=== PATIENT | male | born 1945 | race Caucasian/White ===

== ENCOUNTER 2019-05-02 13:53 | Emergency (ER) | payer OTHER ==
--- NOTE | 2019-05-02 14:35 | RAD REPORT ---
EXAM DESCRIPTION: RAD -Hand Left 3 View - 05/02/2019 2:18 pm CLINICAL HISTORY: Left hand pain status post injury FINDINGS: Comminuted avulsion fracture involves the third terminal tuft. No dislocation 3 millimeter radiopaque foreign body lies within the soft tissues of the first web space
[2019-05-02] MEDS ORDERED: BUPIVACAINE 0.5% PF 10 ML VIAL ONE (14:38)
[2019-05-02] MEDS ORDERED: LIDOCAINE 1% MPF 5 ML VIAL ONE (14:38)
[2019-05-02] MEDS ORDERED: WATER FOR INJ,STERILE 10 ML ONE (15:53)
[2019-05-02] MEDS ORDERED: CEFAZOLIN SODIUM 1 GM/VIAL ONE (15:53)
[2019-05-02] MEDS ORDERED: TETANUS & DIPHTHERIA TOX,ADULT 0.5 ML VIAL ONE (15:53)
--- NOTE | 2019-05-02 16:54 | ER ---
Nurse's Notes [facility] Name: Nolberto Shields Age: 74 yrs Sex: Male : 1945 Arrival Date: 05/02/2019 Time: 13:54 Bed 16 Private MD: Mando Sesay V Diagnosis: Displaced fracture of distal phalanx of left middle finger-open, with damage to nail Presentation: 05/02 13:56 Presenting complaint: Patient states: i was using a skill saw and i cut the tip of my tw2 middle finger on my LEFT hand. Transition of care: patient was not received from another setting of care. Complicating Factors: There are no complicating factors for this patient. Onset of symptoms was May 02, 2019. Risk Assessment: Do you want to hurt yourself or someone else? Patient reports no desire to harm self or others. Initial Sepsis Screen: Does the patient meet any 2 criteria? No. Patient's initial sepsis screen is negative. Does the patient have a suspected source of infection? No. Patient's initial sepsis screen is negative. Care prior to arrival: None. 13:56 Method Of Arrival: Ambulatory tw2 13:56 Acuity: TANNA 3 tw2 14:00 Mechanism of Injury: Laceration sustained. tw2 14:01 Trauma event details: [place] occurred in the county of. tw2 Triage Assessment: 13:59 General: Appears in no apparent distress. Behavior is calm, cooperative, appropriate tw2 for age. Pain: Complains of pain in palmar aspect of distal phalanx of left middle finger and left middle fingernail. Injury Description: Avulsion sustained to left middle fingernail and palmar aspect of distal phalanx of left middle finger. Trauma Activation: Alert Physician: ED Physician; Name: ; Notified At: ; Arrived At: Physician: General Surgeon; Name: ; Notified At: ; Arrived At: Physician: Radiology; Name: ; Notified At: ; Arrived At: Physician: Respiratory; Name: ; Notified At: ; Arrived At: Physician: Lab; Name: ; Notified At: ; Arrived At: Historical: - Allergies: 13:58 No Known Allergies; tw2 - Home Meds: 13:58 levothyroxine oral [Active]; tw2 14:04 aspirin 81 mg Oral chew 1 tab once daily [Active]; tw2 - PMHx: 13:58 Hypothyroidism; prostate problem; tw2 - PSHx: 13:58 None; tw2 - Immunization history:: Last tetanus immunization: < 10 years ago "maybe more than 8 years ago". - Social history:: Smoking status: . - Immunization history: Last tetanus immunization: < 10 years ago. - Ebola Screening: : Patient denies travel to an Ebola-affected area in the 21 days before illness onset. Screenin:21 Abuse screen: Denies threats or abuse. Denies injuries from another. Nutritional la1 screening: No deficits noted. Tuberculosis screening: No symptoms or risk factors identified. Fall Risk None identified. Assessment: 14:19 General: Appears in no apparent distress. Behavior is calm, cooperative. Pain: la1 Complains of pain in left middle fingernail and palmar aspect of distal phalanx of left middle finger. Neuro: Level of Consciousness is awake, alert, obeys commands, Oriented to person, place, time, situation. Cardiovascular: Capillary refill < 3 seconds Patient's skin is warm and dry. Respiratory: Airway is patent Respiratory effort is even, unlabored, Respiratory pattern is regular, symmetrical, Breath sounds are clear bilaterally. GI: No signs and/or symptoms were reported involving the gastrointestinal system. : No signs and/or symptoms were reported regarding the genitourinary system. Musculoskeletal: Circulation, motion, and sensation intact. cap refill in left third digit not present, appears cyanotic. 15:21 Reassessment: Patient appears in no apparent distress at this time. No changes from la1 previously documented assessment. Patient and/or family updated on plan of care and expected duration. Pain level reassessed. Vital Signs: 13:59 BP 151 / 70; Pulse 64; Resp 17; Temp 97.7(TE); Pulse Ox 98% on R/A; Weight 58.51 kg tw2 (R); Height 5 ft. 0 in. (152.40 cm); Pain 2/10; 16:52 BP 124 / 65; Pulse 74; Resp 16; Pulse Ox 98% on R/A; la1 13:59 Body Mass Index 25.19 (58.51 kg, 152.40 cm) tw2 ED Course: 13:54 Patient arrived in ED. rg4 13:54 Mando Sesay MD is Private Physician. rg4 13:57 Triage completed. tw2 13:58 Arm band placed on. tw2 14:07 Carlo Davis PA is PHCP. cp 14:07 Golden Narayan MD is Attending Physician. cp 14:19 Hand Left 3 View In Process Unspecified. EDMS 14:19 Eleazar Quintana, RN is Primary Nurse. la1 14:21 Call light in reach. la1 16:51 Romero Emanuel MD is Referral Physician. cp 16:53 Assist provider with laceration repair on palmar aspect of distal phalanx of left la1 middle finger. Patient did not have IV access during this emergency room visit. Administered Medications: 16:51 Drug: Tetanus-Diphtheria Toxoid Adult 0.5 ml {[employer] Maker: [employer]. Exp: la1 01/22/2021. Lot #: [id number]. } Route: IM; Site: left deltoid; 17:16 Follow up: Response: No adverse reaction la1 16:52 Drug: Ancef 1 grams Route: IM; Site: right gluteus; la1 17:16 Follow up: Response: No adverse reaction la1 Outcome: 16:53 Discharge ordered by MD. cp 17:16 Discharged to home ambulatory. la1 17:16 Condition: stable 17:16 Discharge instructions given to patient, family, Instructed on discharge instructions, follow up and referral plans. medication usage, Demonstrated understanding of instructions, follow-up care, medications, wound care. 17:17 Patient left the ED. la1 Signatures: Dispatcher [employer] EDDC Eleazar Quintana RN RN la1 Carlo Davis PA PA cp Ariadna Lyon RN RN tw2 Marysol Guajardo rg4 Corrections: (The following items were deleted from the chart) 14:50 13:59 Injury Description: Laceration sustained to left middle fingernail tw2 tw2
--- NOTE | 2019-05-02 16:55 | EDPHYS ---
Physician Documentation [facility] Name: Nolberto Shields Age: 74 yrs Sex: Male : 1945 Arrival Date: 05/02/2019 Time: 13:54 Bed 16 Private MD: Mando Sesay V ED Physician Golden Narayan HPI: 05/02 14:20 This 74 yrs old Male presents to ER via Ambulatory with complaints of cp Laceration To Hand. 14:20 The patient has a laceration occurred at home, and using skill saw. The laceration(s) cp is(are) located on the distal phalanx left middle finger. 14:20 Onset: The symptoms/episode began/occurred just prior to arrival. Associated signs and cp symptoms: Pertinent positives: deformity, injury to nail, suspected fracture, Pertinent negatives: dizziness, heavy bleeding. Historical: - Allergies: 13:58 No Known Allergies; tw2 - Home Meds: 13:58 levothyroxine oral [Active]; tw2 14:04 aspirin 81 mg Oral chew 1 tab once daily [Active]; tw2 - PMHx: 13:58 Hypothyroidism; prostate problem; tw2 - PSHx: 13:58 None; tw2 - Immunization history:: Last tetanus immunization: < 10 years ago "maybe more than 8 years ago". - Social history:: Smoking status: . - Immunization history: Last tetanus immunization: < 10 years ago. - Ebola Screening: : Patient denies travel to an Ebola-affected area in the 21 days before illness onset. ROS: 14:30 Constitutional: Negative for fever, poor PO intake. cp 14:30 Cardiovascular: Negative for chest pain, palpitations. cp 14:30 Respiratory: Negative for cough, shortness of breath, wheezing. 14:30 Abdomen/GI: Negative for abdominal pain, nausea, vomiting, and diarrhea. 14:30 Skin: Positive for laceration(s), of the distal phalanx left middle finger. 14:30 Neuro: Positive for decreased sensation distal phalanx left middle finger. 14:30 All other systems are negative. Exam: 14:45 Constitutional: The patient appears in no acute distress, alert, awake, cp non-diaphoretic, well developed, well nourished. 14:45 Head/Face: Normocephalic, atraumatic. cp 14:45 Musculoskeletal/extremity: Extremities: grossly normal except: noted in the distal phalanx left middle finger: deformity, laceration, Perfusion: the extremity is pink, decreased sensation, Tendon exam: specific tendon testing normal through active and passive range of motion Nails: partial avulsion, of the dorsal aspect of distal phalanx of left middle finger. Vital Signs: 13:59 BP 151 / 70; Pulse 64; Resp 17; Temp 97.7(TE); Pulse Ox 98% on R/A; Weight 58.51 kg tw2 (R); Height 5 ft. 0 in. (152.40 cm); Pain 2/10; 16:52 BP 124 / 65; Pulse 74; Resp 16; Pulse Ox 98% on R/A; la1 13:59 Body Mass Index 25.19 (58.51 kg, 152.40 cm) tw2 Laceration: 17:00 Wound Repair of 3cm ( 1.2in ) through nail and nail bed laceration to distal phalanx cp left middle finger. Irregularly shaped.. Skin/tissue flap noted.. Distal neuro/vascular/tendon intact. Anesthesia: Digital block administered with 6 mls of Lido/Marcaine. Wound prep: Moderate cleansing by me, Wound irrigation by me. nailbed closed with 5 1-0 Vicryl using simple sutures and sterile technique. Skin closed with 9 5-0 Vicryl using interrupted sutures and sterile technique. Dressed with Bacitracin, tube gauze. Patient tolerated well. MDM: 14:07 Patient medically screened. cp 16:52 Data reviewed: vital signs, nurses notes, radiologic studies, plain films, I have cp discussed the patient's presentation/case with the attending Emergency Department Physician; and as a result, I will discharge patient. 05/02 14:15 Order name: Hand Left 3 View; Complete Time: 14:42 EDMS 05/02 14:44 Order name: Wound Care: please soak in normal saline; Complete Time: 14:50 cp 05/02 16:37 Order name: Wound dressing; Complete Time: 16:53 cp 05/02 16:37 Order name: Finger Splint; Complete Time: 16:53 cp Administered Medications: 16:51 Drug: Tetanus-Diphtheria Toxoid Adult 0.5 ml {[employer] Operator: [employer]. Exp: la1 01/22/2021. Lot #: [id number]. } Route: IM; Site: left deltoid; 17:16 Follow up: Response: No adverse reaction la1 16:52 Drug: Ancef 1 grams Route: IM; Site: right gluteus; la1 17:16 Follow up: Response: No adverse reaction la1 Disposition: 17:30 Chart complete. cp 05/03 07:04 Co-signature as Attending Physician, Golden Narayan MD. rn Disposition: 05/02/19 16:53 Discharged to Home. Impression: Displaced fracture of distal phalanx of left middle finger - open, with damage to nail. - Condition is Stable. - Discharge Instructions: Finger Fracture. - Prescriptions for Keflex 500 mg Oral Capsule - take 1 capsule by ORAL route every 6 hours for 10 days; 40 capsule. Tylenol- Codeine #3 300-30 mg Oral Tablet - take 2 tablets by ORAL route every 6 hours As needed; 20 tablet. - Medication Reconciliation Form, Thank You Letter, Antibiotic Education, Prescription Opioid Use form. - Follow up: Romero Emanuel MD; When: 2 - 3 days; Reason: Wound Recheck. - Problem is new. - Symptoms have improved. Signatures: Dispatcher [employer] EDAZ Golden Narayan MD MD rn Attema, Lee, RN RN la1 Carlo Davis PA PA cp Ariadna Lyon RN RN tw2 Corrections: (The following items were deleted from the chart) 05/02 14:15 14:05 Hand Right 3 View+RAD.[email or web address] ordered. [facility] 17:17 16:53 05/02/2019 16:53 Discharged to Home. Impression: Displaced fracture of distal la1 phalanx of left middle finger - open, with damage to nail. Condition is Stable. Forms are Medication Reconciliation Form, Thank You Letter, Antibiotic Education, Prescription Opioid Use. Follow up: Romero Emanuel; When: 2 - 3 days; Reason: Wound Recheck. Problem is new. Symptoms have improved. cp
== END 2019-05-02 17:17 | disposition home or self-care (01) ==
LOC: ER 13:53
PROC: 0HQGXZZ Repair Left Hand Skin, External Approach (ICD-10-PCS; principal; 2019-05-02)
DX: S62.633B Displaced fracture of distal phalanx of left middle finger, initial encounter for open fracture (principal); S61.323A Laceration with foreign body of left middle finger with damage to nail, initial encounter; W31.2XXA Contact with powered woodworking and forming machines, initial encounter; Y93.9 Activity, unspecified; Y92.009 Unspecified place in unspecified non-institutional (private) residence as the place of occurrence of the external cause
CPT/HCPCS: 12002; 73130; 90471; 90714; 96372; 99283; J0690

== ENCOUNTER 2025-08-29 17:16 | Observation (INO) | payer OTHER ==
[2025-08-29 18:22] LABS: Absolute Lymphocytes (CBC) 0.7 K/uL (0.7-4.9); Hematocrit 37.5 % (39.6-49.0); Hemoglobin 12.8 g/dL (13.6-17.9); MCH 32.3 pg (27.0-35.0); MCHC 34.2 g/dL (32.0-36.0); MCV 94.6 fL (80-100); MPV 9.6 fL (7.6-11.3); Nucleated RBC Absolute Count 0.0 (0-0); Nucleated Red Blood Cells % 0.0 % (0-0); RBC Red Blood Cell Count 3.96 M/uL (4.33-5.43); White Blood Count 8.10 thou/uL (4.3-10.9)
[2025-08-29 18:28] LABS: PT Prothrombin Time 11.2 SECONDS (10-13.0); Protime INR 0.99
--- NOTE | 2025-08-29 18:31 | EDPHYS ---
Physician Documentation [facility] Name: Nolberto Shields Age: 80 yrs Sex: Male : 1945 Arrival Date: 08/29/2025 Time: 17:16 Bed 4 Private MD: ED Physician Cody Mahmood HPI: 08/29 18:16 This 80 yrs old Male presents to ER via EMS with complaints of Shortness Of ceci Breath. 18:16 The patient has shortness of breath with light activity. Onset: The symptoms/episode ceci began/occurred just prior to arrival, today. Duration: The symptoms are continuous, but are steadily getting better. The patient's shortness of breath is aggravated by exertion, is alleviated by rest, application of supplemental oxygen. Associated signs and symptoms: Pertinent positives: non-productive cough. Severity of symptoms: At their worst the symptoms were mild moderate in the emergency department the symptoms are unchanged. The patient has not experienced similar symptoms in the past. . Historical: - Allergies: 17:26 No Known Allergies; cm10 - PMHx: 17:26 Hypothyroidism; Prostate problem; cm10 - Immunization history:: Adult Immunizations up to date. - Infectious Disease History:: Denies. - Social history:: Smoking status: Patient denies any tobacco usage or history of. ROS: 18:17 Constitutional: Negative for fever, chills, and weight loss, Eyes: Negative for injury, ceci pain, redness, and discharge, ENT: Negative for injury, pain, and discharge, Neck: Negative for injury, pain, and swelling, Cardiovascular: Negative for chest pain, palpitations, and edema, Abdomen/GI: Negative for abdominal pain, nausea, vomiting, diarrhea, and constipation, Back: Negative for injury and pain, : Negative for injury, bleeding, discharge, and swelling, MS/Extremity: Negative for injury and deformity, Skin: Negative for injury, rash, and discoloration, Neuro: Negative for headache, weakness, numbness, tingling, and seizure, Psych: Negative for depression, anxiety, suicide ideation, homicidal ideation, and hallucinations, Allergy/Immunology: Negative for hives, rash, and allergies, Endocrine: Negative for neck swelling, polydipsia, polyuria, polyphagia, and marked weight changes, Hematologic/Lymphatic: Negative for swollen nodes, abnormal bleeding, and unusual bruising, 18:17 Respiratory: Positive for cough, dyspnea on exertion, shortness of breath, on exertion. 18:17 MS/extremity: Negative for acute changes, Exam: 18:17 Constitutional: This is a well developed, well nourished patient who is awake, alert, ceci and in no acute distress. Head/Face: Normocephalic, atraumatic. Eyes: Pupils equal round and reactive to light, extra-ocular motions intact. Lids and lashes normal. Conjunctiva and sclera are non-icteric and not injected. Cornea within normal limits. Periorbital areas with no swelling, redness, or edema. ENT: Nares patent. No nasal discharge, no septal abnormalities noted. Tympanic membranes are normal and external auditory canals are clear. Oropharynx with no redness, swelling, or masses, exudates, or evidence of obstruction, uvula midline. Mucous membranes moist. Neck: Trachea midline, no thyromegaly or masses palpated, and no cervical lymphadenopathy. Supple, full range of motion without nuchal rigidity, or vertebral point tenderness. No Meningismus. Chest/axilla: Normal chest wall appearance and motion. Nontender with no deformity. No lesions are appreciated. Cardiovascular: Regular rate and rhythm with a normal S1 and S2. No gallops, murmurs, or rubs. Normal PMI, no JVD. No pulse deficits. Abdomen/GI: Soft, non-tender, with normal bowel sounds. No distension or tympany. No guarding or rebound. No evidence of tenderness throughout. Back: No spinal tenderness. No costovertebral tenderness. Full range of motion. Male : Normal genitalia with no discharge or lesions. Skin: Warm, dry with normal turgor. Normal color with no rashes, no lesions, and no evidence of cellulitis. MS/ Extremity: Pulses equal, no cyanosis. Neurovascular intact. Full, normal range of motion., bilateral aka Neuro: Awake and alert, GCS 15, oriented to person, place, time, and situation. Cranial nerves II-XII grossly intact. Motor strength 5/5 in all extremities. Sensory grossly intact. Cerebellar exam normal. Normal gait. Psych: Awake, alert, with orientation to person, place and time. Behavior, mood, and affect are within normal limits. 18:17 ECG was reviewed by the Attending Physician. 18:30 Abdomen/GI: Inspection: distension, Bowel sounds: active, Palpation: mild abdominal ceci tenderness, in all quadrants, Liver: no appreciated palpable abnormalities, Hernia: not appreciated, 18:30 Musculoskeletal/extremity: ROM: no acute changes, intact in all extremities, full active range of motion, full passive range of motion, in all extremities, Circulation is intact in all extremities. Sensation intact. Compartment Syndrome exam of affected extremity: is normal. DVT Exam: No signs of deep vein thrombosis. no pain, no swelling, no tenderness, negative Homans' sign noted on exam, no appreciated bluish discoloration, no erythema, no increased warmth, 18:30 Neuro: Orientation: is normal, appropriate for stated age, no acute changes, Mentation: is normal, appropriate for stated age, no acute changes, Memory: is normal, appropriate for stated age, no acute changes, Cranial nerves: grossly normal, is grossly normal based on the patient's age, no acute changes, Cerebellar function: is grossly normal, is grossly normal based on the patient's age, no acute changes, Motor: is normal, Sensation: is normal, appropriate no acute changes, Gait: not tested. Babinski testing is normal, Vital Signs: 17:21 BP 122 / 55; Pulse 67; Resp 24; Temp 97.9(O); Pulse Ox 99% on R/A; Weight 58.97 kg; cm10 Height 5 ft. 0 in. ; Pain 4/10; 17:30 BP 119 / 70; Pulse 65; Resp 15; Pulse Ox 100% on R/A; cm10 18:00 BP 99 / 63; Pulse 74; Resp 16; Pulse Ox 100% on R/A; cm10 18:30 BP 120 / 64; Pulse 78; Resp 19; Pulse Ox 100% on R/A; cm10 20:51 BP 103 / 52; Pulse 82; Resp 19; Pulse Ox 98% on R/A; kd3 21:30 BP 108 / 56; Pulse 82; Resp 18; Pulse Ox 96% on R/A; cc6 08/30 00:26 BP 117 / 71; Pulse 84; Resp 16; Pulse Ox 99% on R/A; kd3 08/29 17:21 Body Mass Index 25.39 (58.97 kg, 152.4 cm) cm10 08/29 17:21 Pain Scale: Adult cm10 Jalil Coma Score: 08/29 18:30 Eye Response: spontaneous(4). Motor Response: obeys commands(6). Verbal Response: ceci oriented(5). Total: 15. MDM: 17:21 Medical Screening Exam initiated ceci 18:20 Differential diagnosis: Anemia Anxiety Reaction asthma, Bronchitis CHF exacerbation, ceci Chronic Obstructive Pulmonary Disease Myocardial Infarction pneumonia, Pneumothorax pulmonary edema, Pulmonary Embolism reactive airway disease, Sepsis Unstable Angina. Antibiotic administration: Not indicated. Differential Diagnosis altered mental status, sepsis, flu. Immunization status: Pneumococcal vaccine: within last 5 years. Influenza vaccine: within last 5 years. Data reviewed: vital signs, nurses notes, lab test result(s), EKG, radiologic studies, plain films. Consideration of Admission/Observation Patient was admitted/placed on observation. Escalation of care including admission/observation considered. I considered the following discharge prescriptions or medication management in the emergency department Medications were administered in the Emergency Department. See MAR. Independent interpretation of the following test(s) in the Emergency Department EKG: See my EKG interpretation above. Test considered but Not performed: CT: NO CT CHEST. Historians other than the Patient: EMS: EMS WELL INFORMED. Family Member: FAMILY , WELL INFORMED. Care significantly affected by the following chronic conditions: HYPOTHYROID, PROSTRATE. 18:48 Post IV fluid administration reassessment for Sepsis: Client prescribed 30 mL/kg IVF. [facility] Counseling: I had a detailed discussion with the patient and/or guardian regarding the historical points, exam findings, and any diagnostic results supporting the discharge/admit diagnosis, lab results, radiology results, the need for further work-up and treatment in the hospital. 21:54 ED course: CLINICAL HISTORY: ABD PAIN STUDY: Limited right upper quadrant ultrasound of sp4 abdomen. COMPARISON: None. FINDINGS: Liver: Limited evaluation but grossly unremarkable. Bile ducts: No intrahepatic or extrahepatic biliary ductal dilatation. Common bile duct measures 5 mm. Gallbladder: Gallbladder sludge with small stones. The gallbladder is distended. No sonographic Fagan sign. IMPRESSION: Distended gallbladder with sludge and small stones but no significant gallbladder wall thickening or ancillary findings to suggest acute cholecystitis.. 21:55 ED course: COMPARISON: No priors. FINDINGS: LOWER NECK: Visualized thyroid gland and sp4 soft tissues are normal. MEDIASTINUM AND LYMPH NODES: No mediastinal mass or fluid collection. Normal size mediastinal, hilar, and axillary lymph nodes. THORACIC AORTA: No thoracic aortic aneurysm. PULMONARYARTERIES: Caliber is within normal limits. HEART: Normal heart size. No coronary calcifications.No significant pericardial effusion. LUNGS AND AIRWAYS: Subpleural nodule along the right hemidiaphragm is likely benign. No suspicious pulmonary nodules. No acute process in lungs. Motion artifact limits evaluation for pulmonary nodule detection. PLEURA: No pleural effusions. No pneumothorax. OSSEOUS STRUCTURES AND CHEST WALL: Multilevel degenerative changes. No acute fracture. UPPER ABDOMEN: Reference CT of the abdomen and pelvis. IMPRESSION: Negative for pulmonary embolism. No other acute process identified in the chest. . ED course: COMPARISON: No prior exams FINDINGS: LOWER CHEST: See same-day chest CT UPPER GI: Distended stomach. There is wall thickening along the medial aspect of the second portion of the duodenum. LIVER: Hepatic steatosis, but otherwise unremarkable. GALLBLADDER/BILE DUCTS: Distended gallbladder with pericholecystic edema.?Enhancement of the common bile duct with common bile duct measuring 5 mm is within normal limits. PANCREAS: Mild peripancreatic edema. The pancreas is diffusely atrophic. SPLEEN: Unremarkable. ADRENALS: No adrenal masses. KIDNEYS AND URETERS: No hydronephrosis. Bilateral renal sinus cysts. No renal calculi. No ureteral calculi. ABDOMINAL AORTA AND OTHER VESSELS: Moderate atherosclerotic changes without aortic aneurysm. PERITONEUM: Nonspecific free fluid. LYMPH NODES: No pathologic lymphadenopathy. ABDOMINAL WALL: Unremarkable SMALL BOWEL/COLON: Small bowel has normal course and caliber. No colonic wall thickening or pericolonic inflammatory changes. Normal appendix. Mild diverticulosis without diverticulitis. URINARYBLADDER: Underdistended but grossly unremarkable. REPRODUCTIVE ORGANS: No pathologic process. MUSCULOSKELETAL: Multilevel degenerative changes in the spine. No acute fracture. ADDITIONAL FINDINGS: None. IMPRESSION: Mild diffuse peripancreatic edema could represent acute hepatitis. Correlate with lipase. Other findings present including gallbladder distention with mild pericholecystic edema, enhancement of the common bile duct (without dilatation), and wall thickening along the duodenum. These latter findings may be reactive. If acute pancreatitis is excluded, duodenitis/peptic ulcer disease or cholecystitis are other possibilities. . 22:14 ED course: Sedation discussed extensively with hospitalist at [address] and we have provided detailed report. As a result of discussion patient was accepted for transfer to [facility] for further evaluation and GI consult. Transfer proceedings will continue as of now. 08/29 17:22 Order name: Basic Metabolic Panel; Complete Time: 19:35 [facility] 08/29 17:22 Order name: CBC with Diff; Complete Time: 21:30 [facility] 08/29 17:22 Order name: LFT's; Complete Time: 19:35 [facility] 08/29 17:22 Order name: Magnesium; Complete Time: 19:35 [facility] 08/29 17:22 Order name: NT PRO-BNP; Complete Time: 19:35 [facility] 08/29 17:22 Order name: PT-INR; Complete Time: 18:48 [facility] 08/29 17:22 Order name: Troponin HS; Complete Time: 19:35 [facility] 08/29 17:22 Order name: Blood Culture Adult (2) [facility] 08/29 17:22 Order name: COVID-19 Ag + Flu A+B Ag; Complete Time: 18:48 [facility] 08/29 17:22 Order name: Lactate w/ 2H reflex if indic.; Complete Time: 18:48 [facility] 08/29 17:22 Order name: Lipase; Complete Time: 19:35 [facility] 08/29 17:22 Order name: UA Rfx Jase Cult if indicated; Complete Time: 22:02 [facility] 08/29 18:43 Order name: Ghost Lactate-NO COLLECT Timer; Complete Time: 21:21 [facility] 08/29 19:37 Order name: Lipid Profile [facility] 08/29 21:27 Order name: CBC Smear Scan; Complete Time: 21:30 EDID 08/29 22:22 Order name: Lipid Profile [facility] 08/29 23:40 Order name: Lactate Sepsis 2 HR Follow-up EDID 08/29 17:22 Order name: XRAY Chest (1 view); Complete Time: 18:48 [facility] 08/29 18:28 Order name: CT Chest For PE Angio [facility] 08/29 18:28 Order name: CT Abd/Pelvis - IV Contrast Only [facility] 08/29 18:28 Order name: US Abdomen Limited [facility] 08/29 20:00 Order name: CT; Complete Time: 21:21 EDID 08/29 20:11 Order name: CT; Complete Time: 21:21 EDID 08/29 20:31 Order name: US; Complete Time: 21:21 EDID 08/29 17:22 Order name: EKG; Complete Time: 17:23 ceci 08/29 17:22 Order name: Cardiac monitoring; Complete Time: 18:38 ceci 08/29 17:22 Order name: EKG - Nurse/Tech; Complete Time: 18:39 ecci 08/29 17:22 Order name: IV Saline Lock; Complete Time: 18:39 ceci 08/29 17:22 Order name: Labs collected and sent; Complete Time: 18:39 ceci 08/29 17:22 Order name: O2 Per Protocol; Complete Time: 18:39 ceci 08/29 17:22 Order name: O2 Sat Monitoring; Complete Time: 18:39 ceci 08/29 19:37 Order name: NPO; Complete Time: 20:53 ceci EC:17 Rate is 79 beats/min. QRS [place] is Normal. VA interval is normal. QRS interval is ceci normal. QT interval is normal. No Q waves. T waves are Normal. No ST changes noted. Clinical impression: NSR w/ Non-specific ST/T Changes and No evidence of ischemia. Interpreted by me. Reviewed by me. Administered Medications: 18:28 CANCELLED (Duplicate Order): ns 0.9% 500 ml 500 ml IV at 100 ml/hr once; to be given as ceci a bolus over 30 minutes 18:47 CANCELLED (Duplicate Order): ns 0.9% 500 ml 500 ml IV at 1 bolus once; to be given as a ceci bolus over 30 minutes 19:06 Drug: NS 0.9% IV (30 ml/kg) 30 ml/kg IV at bolus once; Sepsis Protocol; to be given as cm10 a bolus over 90 minutes Route: IV; Rate: bolus; Site: left antecubital; 20:50 Follow up: IV Status: Completed infusion kd3 19:06 Drug: Rocephin IV 1 grams IV at per protocol once; Given slow IV push per pharmacy cm10 instructions Route: IV; Rate: per protocol; Site: left antecubital; 20:50 Follow up: IV Status: Completed infusion kd3 20:50 Drug: Piperacillin-Tazobactam IVPB 3.375 grams IVPB once over 60 mins; (mix in NS 100 kd3 mL) Route: IVPB; Infused Over: 60 mins; Site: left antecubital; 22:15 Follow up: IV Status: Completed infusion kd3 22:15 Drug: NS 0.9% IV 1000 ml IV at 125 ml/hr once Route: IV; Rate: 125 ml/hr; Site: right kd3 hand; Disposition Summary: 08/29/25 19:36 Transfer Ordered Notes: Transfer Location: [facility] ceci Reason: Higher level of care ceci Condition: Fair(08/29/25 19:36) ceci Problem: new(08/29/25 19:36) ceci Symptoms: have improved(08/29/25 19:36) ceci Accepting Physician: to [facility] tele(08/30/25 00:26) kd3 Diagnosis - Epigastric abdominal tenderness(08/29/25 19:36) ceci - Vomiting ceci - Biliary acute pancreatitis ceci - Acute gallstone pancreatitis sp4 Forms: - Medication Reconciliation Form ceci - SBAR form ceci Signatures: Dispatcher [employer] EDCarlo Yost MD MD cha Botello, Elizabeth eb Doucette, Kyli RN RN kd3 Cody Mahmood MD MD sp4 Sagrario Espinosa RN RN cm10 Corrections: (The following items were deleted from the chart) 17:23 17:23 BASIC METABOLIC PANEL+C.LAB.BRZ ordered. EDMS EDMS 17:23 17:23 CBC+H.LAB.BRZ ordered. EDMS EDMS 17:23 17:23 HEPATIC FUNCTION+C.LAB.BRZ ordered. EDMS EDMS 17:23 17:23 MAGNESIUM+C.LAB.BRZ ordered. EDMS EDMS 17:23 17:23 PROBNP+C.LAB.BRZ ordered. EDMS EDMS 17:23 17:23 PROTIME (+INR)+COAG.LAB.BRZ ordered. EDMS EDMS 17:23 17:23 Troponin High Sensitivity+C.LAB.BRZ ordered. EDMS EDMS 17:23 17:23 BLOOD CULTURE*+BA.LAB.BRZ ordered. EDMS EDMS 17:23 17:23 COVID-19 Ag + Flu A+B Ag+I.LAB.BRZ ordered. EDMS EDMS 17:23 17:23 LACTATE+C.LAB.BRZ ordered. EDMS EDMS 17:26 17:26 Allergies: Aspirin; cm10 cm10 18:28 17:22 NS 0.9% IV 500 ml 500 ml IV at 100 ml/hr once; to be given as a bolus over 30 ceci minutes ordered. ceci 18:45 18:30 ceci eb 18:47 18:28 NS 0.9% IV 500 ml 500 ml IV at 1 bolus once; to be given as a bolus over 30 ceci minutes ordered. ceci 19:33 18:30 Observation ceci ceci 19:33 18:30 Mando Sesay ceci ceci 19:33 18:30 Telemetry/MedSurg (observation) ceci ceci 19:33 18:30 Stable ceci ceci 19:33 18:30 new ceci ceci 19:33 18:30 have improved ceci ceci 19:33 18:30 Standard ceci ceci 19:33 18:30 Dyspnea ceci ceci 19:33 18:30 Epigastric abdominal tenderness ceci ceci 19:33 18:30 Hypotension, unspecified - RESOLVED ceci ceci 19:33 18:45 215 eb ceci 22:00 19:36 to [facility] tele ceci sp4 08/30 00:26 08/29 22:00 to [facility] tele sp4 kd3
--- NOTE | 2025-08-29 18:31 | ER ---
Nurse's Notes [facility] Name: Nolberto Shields Age: 80 yrs Sex: Male : 1945 Arrival Date: 08/29/2025 Time: 17:16 Bed 4 Private MD: Diagnosis: Epigastric abdominal tenderness;Vomiting;Biliary acute pancreatitis;Acute gallstone pancreatitis Presentation: 08/29 17:21 Chief complaint: EMS states: TONED OUT TO PATIENTS HOME DUE TO PATIENT HAVING SHORTNESS cm10 OF BREATH. PT REPORTS THAT HE WAS EXERCISING WHEN THIS BEGAN. EMS STATES THAT WHEN THE ARRIVED TO THE PATIENTS HOME, PT WAS TACHYPNEIC, ABDOMINAL DISTENTION, AND FEELS LIKE HE CANNOT CATCH HIS BREATH. PT STATES THAT HIS SHORTNESS OF BREATH HAS IMPROVED. Coronavirus screen: Client denies travel out of the [place] in the last 14 days. Ebola Screen: Patient denies travel to an Ebola-affected area in the 21 days before illness onset. Initial Sepsis Screen: Does the patient meet any 2 criteria? RR > 20 per min. Does the patient have a suspected source of infection? No. Patient's initial sepsis screen is negative. Risk Assessment: Do you want to hurt yourself or someone else? Patient reports no desire to harm self or others. Onset of symptoms was August 29, 2025. Care prior to arrival: Medication(s) given: Normal saline infusion, 150mL IV initiated. 20 GA, in the left antecubital area, Glucose check: 127. 17:21 Method Of Arrival: EMS: [facility] cm10 17:21 Acuity: TANNA 2 cm10 Triage Assessment: 17:26 General: Appears uncomfortable, Behavior is calm, cooperative. Neuro: No deficits cm10 noted. Level of Consciousness is awake, alert, obeys commands, Oriented to person, place, time, situation, Appropriate for age. Respiratory: Reports shortness of breath Airway is patent Respiratory effort is even, Respiratory pattern is tachypnea Onset: The symptoms/episode began/occurred suddenly, the patient has mild shortness of breath. GI: Abdomen is distended. Historical: - Allergies: 17:26 No Known Allergies; cm10 - PMHx: 17:26 Hypothyroidism; Prostate problem; cm10 - Immunization history:: Adult Immunizations up to date. - Infectious Disease History:: Denies. - Social history:: Smoking status: Patient denies any tobacco usage or history of. Screenin:[address] [facility] ED Fall Risk Assessment (Adult) History of falling in the last 3 months, kd3 including since admission No falls in past 3 months (0 pts) Confusion or Disorientation No (0 pts) Intoxicated or Sedated No (0 pts) Impaired Gait No (0 pts) Mobility Assist Device Used No (0 pt) Altered Elimination No (0 pt) Score/Fall Risk Level 0 - 2 = Low Risk Maintained a safe environment. Abuse screen: Denies threats or abuse. Denies injuries from another. Nutritional screening: No deficits noted. Tuberculosis screening: No symptoms or risk factors identified. Assessment: 20:50 General: Appears in no apparent distress. Behavior is calm, cooperative. Pain: Denies kd3 pain. Neuro: Level of Consciousness is awake, alert, obeys commands, Oriented to person, place, time, situation. Cardiovascular: Rhythm is sinus rhythm. Respiratory: Airway is patent Trachea midline Respiratory effort is even, unlabored, Respiratory pattern is regular, symmetrical, Breath sounds are clear bilaterally. 22:06 Reassessment: Patient and/or family updated on plan of care and expected duration. Pain cc6 level reassessed. Patient is alert, oriented x 3, equal unlabored respirations, skin warm/dry/pink. Vital Signs: 17:21 BP 122 / 55; Pulse 67; Resp 24; Temp 97.9(O); Pulse Ox 99% on R/A; Weight 58.97 kg; cm10 Height 5 ft. 0 in. ; Pain 4/10; 17:30 BP 119 / 70; Pulse 65; Resp 15; Pulse Ox 100% on R/A; cm10 18:00 BP 99 / 63; Pulse 74; Resp 16; Pulse Ox 100% on R/A; cm10 18:30 BP 120 / 64; Pulse 78; Resp 19; Pulse Ox 100% on R/A; cm10 20:51 BP 103 / 52; Pulse 82; Resp 19; Pulse Ox 98% on R/A; kd3 21:30 BP 108 / 56; Pulse 82; Resp 18; Pulse Ox 96% on R/A; cc6 08/30 00:26 BP 117 / 71; Pulse 84; Resp 16; Pulse Ox 99% on R/A; kd3 08/29 17:21 Body Mass Index 25.39 (58.97 kg, 152.4 cm) cm10 08/29 17:21 Pain Scale: Adult cm10 [place] Coma Score: 08/29 18:30 Eye Response: spontaneous(4). Motor Response: obeys commands(6). Verbal Response: ceci oriented(5). Total: 15. ED Course: 17:21 Patient arrived in ED. cm10 17:21 Carlo Milian MD is Attending Physician. ceci 17:26 Triage completed. cm10 17:26 Arm band placed on right wrist. Patient placed in an exam room, on a stretcher, on cm10 therapeutic specialist, on pulse oximetry. 17:28 Sagrario Espinosa, JOSE F is Primary Nurse. cm10 17:57 XRAY Chest (1 view) In Process Unspecified. EDMS 18:00 Inserted saline lock: 20 gauge in right hand, using aseptic technique. Flushed with 10 aa5 mL NS. 18:29 Mando Sesay MD is Hospitalizing Provider. ceci 18:39 EKG done, by ED staff, reviewed by Carlo Milian MD. Maintain EMS IV. Dressing intact. cm10 Good blood return noted. Site clean \T\ dry. Gauge \T\ site: 20g left ac. Flushed with 10 mL NS. 19:18 Deisy Montez, JOSE F is Primary Nurse. kd3 19:35 Attending Physician role handed off by Carlo Milian MD sp4 19:35 Cody Mahmood MD is Attending Physician. sp4 20:50 Lipid Profile Sent. kd3 20:50 Second set of blood cultures drawn by wv. kd3 20:52 Patient has correct armband on for positive identification. Provided Education on: kd3 blood cultures . 21:38 initiated with [facility] spoke with Yovani. vk 23:43 Patient was accepted to [facility] RM [address] Li \T\[id number] accepting admin Yovani Marie \T\2201 transport ems [place]. 08/30 00:24 No provider procedures requiring assistance completed. Patient transferred, IV remains kd3 in place. Administered Medications: 08/29 18:28 CANCELLED (Duplicate Order): ns 0.9% 500 ml 500 ml IV at 100 ml/hr once; to be given as ceci a bolus over 30 minutes 18:47 CANCELLED (Duplicate Order): ns 0.9% 500 ml 500 ml IV at 1 bolus once; to be given as a ceci bolus over 30 minutes 19:06 Drug: NS 0.9% IV (30 ml/kg) 30 ml/kg IV at bolus once; Sepsis Protocol; to be given as cm10 a bolus over 90 minutes Route: IV; Rate: bolus; Site: left antecubital; 20:50 Follow up: IV Status: Completed infusion kd3 19:06 Drug: Rocephin IV 1 grams IV at per protocol once; Given slow IV push per pharmacy cm10 instructions Route: IV; Rate: per protocol; Site: left antecubital; 20:50 Follow up: IV Status: Completed infusion kd3 20:50 Drug: Piperacillin-Tazobactam IVPB 3.375 grams IVPB once over 60 mins; (mix in NS 100 kd3 mL) Route: IVPB; Infused Over: 60 mins; Site: left antecubital; 22:15 Follow up: IV Status: Completed infusion kd3 22:15 Drug: NS 0.9% IV 1000 ml IV at 125 ml/hr once Route: IV; Rate: 125 ml/hr; Site: right kd3 hand; Medication: 08/30 00:26 VIS not applicable for this client. kd3 Outcome: 08/29 18:30 Decision to Hospitalize by Provider. [facility] 19:36 ER care complete, transfer ordered by . [facility] 08/30 00:24 Transferred by ground EMS to [facility], [facility], kd3 Condition: stable Discharge instructions given to patient, Instructed on the need for transfer, 00:26 Patient left the ED. kd3 Signatures: Dispatcher [employer] EDMS Carlo Milian MD MD cha Calderon, Audri, RN RN aa5 Deisy Montez RN RN kd3 Cody Mahmood MD MD sp4 Sagrario Espinosa RN RN cm10 Lana Wilkins Cassandra, RN RN cc6 Corrections: (The following items were deleted from the chart) 08/29 17:26 17:26 Allergies: Aspirin; cm10 cm10 17:28 17:21 Chief complaint: EMS states: TONED OUT TO PATIENTS HOME DUE TO PATIENT HAVING cm10 SHORTNESS OF BREATH. EMS STATES THAT WHEN THE ARRIVED TO THE PATIENTS HOME, PT WAS TACHYPNEIC, ABDOMINAL DISTENTION, AND FEELS LIKE HE CANNOT CATCH HIS BREATH. PT STATES THAT HIS SHORTNESS OF BREATH HAS IMPROVED. cm10
[2025-08-29 18:33] LABS: Influenza A Ag Negative; Influenza B Ag Negative; SARS-CoV-2 Antigen Rapid Res Negative (Negative)
--- NOTE | 2025-08-29 18:43 | RAD REPORT ---
EXAM: Chest Single View HISTORY: 80 years Male DYSPNEA COMPARISON: No prior exams FINDINGS: LUNGS/PLEURA: The lungs are clear. No pleural effusions or pneumothorax. No pulmonary edema. CARDIAC/MEDIASTINUM: The cardiac silhouette is within normal limits. UPPER ABDOMEN: No significant abnormality. BONES: No acute abnormality. LINES/TUBES/OTHER: N/A IMPRESSION: No evidence of acute cardiopulmonary disease.
[2025-08-29] MEDS ORDERED: CEFTRIAXONE 1000 MG/VIAL ONE (18:51)
[2025-08-29] MEDS ORDERED: NA CHLORIDE 0.9% 1,000 ML ONE ×2 (18:51→22:07)
[2025-08-29] MEDS ORDERED: NA CHLORIDE 0.9% 50 ML ONE (18:52)
[2025-08-29 19:31] LABS: ALT/SGPT 227.0 U/L (16-61); Albumin 3.2 g/dL (3.4-5.0); Albumin/Globulin Ratio 1.0 (1.1-1.8); Alkaline Phosphatase 113.0 U/L (45-117); BUN Blood Urea Nitrogen 17.0 mg/dL (7-18); Bilirubin Indirect, Calculated 0.8 mg/dL (0.2-0.8); Globulin 3.3 g/dL (2.3-3.5); Glucose Level 113.0 mg/dL (74-106); Lipase 4779.0 U/L (13-75); Magnesium 2.2 mg/dL (1.6-2.4); NT PRO-BNP 271.0 pg/mL (<450); Potassium 4.4 mEq/L (3.5-5.1); Troponin High Sensitivity 3.7 pg/mL (<58.9)
[2025-08-29 19:34] LABS: AST/SGOT 429.0 U/L (15-37); Anion Gap 12.1 mEq/L (5.0-15.0)
--- NOTE | 2025-08-29 19:59 | RAD REPORT ---
EXAMINATION: CTA CHEST PE CLINICAL INDICATION: Male, 80 years old. DYSPNEA TECHNIQUE: This examination was performed according to an angiographic protocol with 3D post-processi ng. This involves 3D reconstructions, MIPs, volume rendered images and/or shaded surface rendering. One or more of the following dose reduction techniques were used: Automated exposure control, adjustm ent of the mA and/or kV according to patient size, and/or iterative reconstruction. Unless otherwise specified, incidental findings do not require dedicated imaging follow-up. [id number]. COMPARISON: No priors. FINDINGS: LOWER NECK: Visualized thyroid gland and soft tissues are normal. MEDIASTINUM AND LYMPH NODES: No mediastinal mass or fluid collection. Normal size mediastinal, hilar, and axillary lymph nodes. THORACIC AORTA: No thoracic aortic aneurysm. PULMONARY ARTERIES: Caliber is within normal limits. HEART: Normal heart size. No coronary calcifications.No significant pericardial effusion. LUNGS AND AIRWAYS: Subpleural nodule along the right hemidiaphragm is likely benign. No suspicious pu lmonary nodules. No acute process in lungs. Motion artifact limits evaluation for pulmonary nodule detection. PLEURA: No pleural effusions. No pneumothorax. OSSEOUS STRUCTURES AND CHEST WALL: Multilevel degenerative changes. No acute fracture. UPPER ABDOMEN: Reference CT of the abdomen and pelvis. IMPRESSION: Negative for pulmonary embolism. No other acute process identified in the chest.
--- NOTE | 2025-08-29 20:10 | RAD REPORT ---
EXAMINATION: Abdomen Pelvis W Contrast CLINICAL INDICATION: Male, 80 years old.Abd pain;Abdominal distention TECHNIQUE: CT abdomen and pelvis was performed, after the administration of IV contrast, as per [facility] protocol. Axial, sagittal and coronal reconstructions were obtained. One or more of the following dose reduction techniques were used: Automated exposure control, adjustment of the mA and/o r kV according to patient size, and/or iterative reconstruction. Unless otherwise specified, incidental findings do not require dedicated imaging follow-up. [id number]. COMPARISON: No prior exams FINDINGS: LOWER CHEST: See same-day chest CT UPPER GI: Distended stomach. There is wall thickening along the medial aspect of the second portion o f the duodenum. LIVER: Hepatic steatosis, but otherwise unremarkable. GALLBLADDER/BILE DUCTS: Distended gallbladder with pericholecystic edema.?Enhancement of the common b ile duct with common bile duct measuring 5 mm is within normal limits. PANCREAS: Mild peripancreatic edema. The pancreas is diffusely atrophic. SPLEEN: Unremarkable. ADRENALS: No adrenal masses. KIDNEYS AND URETERS: No hydronephrosis. Bilateral renal sinus cysts. No renal calculi. No ureteral ca lculi. ABDOMINAL AORTA AND OTHER VESSELS: Moderate atherosclerotic changes without aortic aneurysm. PERITONEUM: Nonspecific free fluid. LYMPH NODES: No pathologic lymphadenopathy. ABDOMINAL WALL: Unremarkable SMALL BOWEL/COLON: Small bowel has normal course and caliber. No colonic wall thickening or pericolon ic inflammatory changes. Normal appendix. Mild diverticulosis without diverticulitis. URINARY BLADDER: Underdistended but grossly unremarkable. REPRODUCTIVE ORGANS: No pathologic process. MUSCULOSKELETAL: Multilevel degenerative changes in the spine. No acute fracture. ADDITIONAL FINDINGS: None. IMPRESSION: Mild diffuse peripancreatic edema could represent acute hepatitis. Correlate with lipase. Other findi ngs present including gallbladder distention with mild pericholecystic edema, enhancement of the common bile duct (without dilatation), and wall thickening along the duodenum. These latter findings may be reactive. If acute pancreatitis is excluded, duodenitis/peptic ulcer disease or cholecystitis are other possibilities.
[2025-08-29] MEDS ORDERED: NA CHLORIDE 0.9% 100 ML ONE (20:11)
[2025-08-29] MEDS ORDERED: PIPERACIL/TAZO 3.375 GM VIAL IV ONE (20:11)
--- NOTE | 2025-08-29 20:30 | RAD REPORT ---
Abdomen Exam Limited: 08/29/2025 7:50 PM CLINICAL HISTORY: ABD PAIN STUDY: Limited right upper quadrant ultrasound of abdomen. COMPARISON: None. FINDINGS: Liver: Limited evaluation but grossly unremarkable. Bile ducts: No intrahepatic or extrahepatic biliary ductal dilatation. Common bile duct measures 5 mm. Gallbladder: Gallbladder sludge with small stones. The gallbladder is distended. No sonographic Dolores y sign. IMPRESSION: Distended gallbladder with sludge and small stones but no significant gallbladder wall thickening or ancillary findings to suggest acute cholecystitis.
[2025-08-29 21:26] LABS: Blood Morphology Comment NOT SEEN (NOT SEEN); White Blood Cell Scan OK (OK)
[2025-08-29 21:48] LABS: Urine Microscopic Reflex YN NO UMIC
[2025-08-29 22:22] LABS: HDL Cholesterol 48.0 mg/dL (40-60); LDL Cholesterol, Calculated 41.0 mg/dL (<130); LDL Cholesterol,Calc NonReport 41.0
[2025-08-30 01:10] VITALS: TEMP 97.9
[2025-08-30 01:17] VITALS: BP 117/71; O2SAT 99
== END 2025-08-30 10:57 | disposition home or self-care (01) ==
LOC: ER 17:16 → 2ND 18:33 → ERHOLD 08-30 02:21
PROVIDERS: ADMIT Internal Medicine; ATTEND Internal Medicine
DX: K85.10 Biliary acute pancreatitis without necrosis or infection (principal); K86.89 Other specified diseases of pancreas; E03.9 Hypothyroidism, unspecified; R11.10 Vomiting, unspecified; Z11.52 Encounter for screening for COVID-19
CPT/HCPCS: 96365; 96367; 96368; 93005; 87040; 85025; 80048; 36415; 83735; 87205 ×2; 85610; 80061; 80076; 83605 ×2; 81003; 84484; 83690; 83880; 71275; 74177; 71045; 76705; 99285; 96366; 87428; Q9967; J2543; J7030 ×2; J0696; G0378 ×4; 87077; 87186